=== PATIENT | male | born 1995 | race Hispanic/Latino ===

== ENCOUNTER 2022-05-11 12:19 | Emergency (ER) | payer OTHER ==
[~2022-05-11] VITALS: Ht 185.4 cm; Wt 99.8 kg
== END 2022-05-11 13:27 | disposition home or self-care (01) ==
LOC: ER 12:31
DX: S93.491A Sprain of other ligament of right ankle, initial encounter (principal); W01.0XXA Fall on same level from slipping, tripping and stumbling without subsequent striking against object, initial encounter; Y92.89 Other specified places as the place of occurrence of the external cause
CPT/HCPCS: 99282